=== PATIENT | female | born 1990 | race Caucasian/White ===

== ENCOUNTER 2021-07-13 05:48 | Inpatient (IN) ==
[2021-07-13] MEDS ORDERED: Buffered Lidocaine 1% SYRIN 1 ml INTRADERM ONE (06:00)
[2021-07-13] MEDS ORDERED: Lactated Ringers 1000 ml BAG 1,000 ML IV SCH (06:00)
[2021-07-13] MEDS ORDERED: ceFAZolin 2 GM in NS PREMIX 2 GM/100 ML BAG IVPB ONE (06:02)
[2021-07-13] MEDS ORDERED: Heparin 5000 UNITS/ML 1 mL VIAL ONE (06:02)
[2021-07-13] MEDS ORDERED: ceFAZolin 1 GM ADVAN 1 GM ADDV.VIAL IVPB ONE (06:02)
[2021-07-13] MEDS ORDERED: Midazolam 2 mg/2 ml VIAL 1 mg/ml 2 ml VIAL (2 mg) ONE (07:01)
[2021-07-13] MEDS ORDERED: fentaNYL 100 mcg/2 ml 50 MCG/ML VIAL ONE (07:01)
[2021-07-13] MEDS ORDERED: Propofol 10 MG/ML 20 ML BTL ONE (07:02)
[2021-07-13] MEDS ORDERED: Lidocaine 2% PF 5 ML VIAL ONE (07:02)
[2021-07-13] MEDS ORDERED: Ketamine HCL 50 mg/ml 10 ml VIAL (500 MG) ONE (07:02)
[2021-07-13] MEDS ORDERED: Rocuronium 50 mg VIAL 10 mg/ml 5 ml VIAL (50 mg) ONE (07:11)
[2021-07-13] MEDS ORDERED: Bupivacaine 0.25% SDV 30 ML ONE (07:18)
[2021-07-13] MEDS ORDERED: Methylene Blue 0.5 % 50 MG/10 ML AMP IV ONE (07:18)
[2021-07-13] MEDS ORDERED: Ondansetron 4 mg VIAL 2 MG/ML 2 ml VIAL IV PRN (08:45)
[2021-07-13] MEDS ORDERED: Naloxone 0.4 mg VIAL 0.4 mg/ml 1 ml VIAL IV PRN (08:45)
[2021-07-13] MEDS ORDERED: DiMENhydriNATE IV 50 mg/ml 1 ml VIAL IV PUSH PRN (08:45)
[2021-07-13] MEDS ORDERED: Acetaminophen IV 1 GM/100ML 100 ML IV ONE (09:42)
[2021-07-13] MEDS ORDERED: Dexamethasone IV 4 MG/ML VIAL 1 ml VIAL ONE (09:42)
[2021-07-13] MEDS ORDERED: Ondansetron 4 mg VIAL 2 MG/ML 2 ml VIAL ONE (09:42)
[2021-07-13] MEDS ORDERED: diPHENhydraMINE IV 50 MG/ML 1 ml VIAL (BENADRYL) SLOW PUSH PRN (10:36)
[2021-07-13] MEDS ORDERED: HYDROmorphone 1 MG/1 ML SYRINGE IV SLOW PU PRN (10:36)
[2021-07-13] MEDS ORDERED: HYDROmorphone 0.5 MG/0.5 ML SYRINGE IV SLOW PU PRN (10:36)
[2021-07-13] MEDS ORDERED: HYDROmorphone 1 MG/1 ML SYRINGE ONE (10:42)
[2021-07-13] MEDS: HYDROmorphone 1 MG/1 ML SYRINGE IV PRN ×2 (10:43→11:00)
[2021-07-13] MEDS: Lactated Ringers 1000 ml BAG 1,000 ML IV SCH ×2 (12:50→19:03)
[2021-07-13] MEDS: Heparin 5000 UNITS/ML 1 mL VIAL SUBCUT SCH ×2 (14:28→21:31)
[2021-07-13] MEDS ORDERED: NS 0.9% 1000 ml BAG 1,000 ML IV ONE (20:34)
[2021-07-13] MEDS: Famotidine IV 10 MG/ML 2 ml VIAL (20 mg) IV SLOW PU SCH (21:31)
[2021-07-14] MEDS: Lactated Ringers 1000 ml BAG 1,000 ML IV SCH ×2 (00:28→06:13)
[2021-07-14] MEDS: Heparin 5000 UNITS/ML 1 mL VIAL SUBCUT SCH ×2 (06:13→13:08)
[2021-07-14 07:54] LABS: ABS Lymphocytes 2.1 10^3/ul (1.0-4.8); ABS Monocytes 0.5 10^3/ul (0-0.8); ABS Neutrophils 6.5 10^3/ul (1.5-7.7); Hematocrit 36 % (35-47); Hemoglobin 12.4 g/dL (12.0-16.0); Lymphocyte % 22.6 %; Mean Corpuscular HGB Conc 34 g/dL (31-36); Mean Corpuscular Hemoglobin 31 pg (27-31); Mean Corpuscular Volume 90 fL (80-97); Mean Platelet Volume 8.9 fL (7.4-10.4); Platelet Count 211 10^3/uL (150-450); Red Blood Count 3.98 10^6 /uL (3.70-4.87); Red Cell Distribution Width 14 % (10-15); White Blood Count 9.1 10^3/uL (3.5-10.8)
[2021-07-14 08:12] LABS: Calcium 8.4 mg/dL (8.6-10.3); Potassium 3.9 mmol/L (3.5-5.0)
[2021-07-14] MEDS: Famotidine IV 10 MG/ML 2 ml VIAL (20 mg) IV SLOW PU SCH (09:16)
[2021-07-14] MEDS ORDERED: HYDROcodone/ACET. 7.5/325 LIQ 15 ML UDC PO PRN (10:21)
[2021-07-14] MEDS ORDERED: D5W 1/2 NS KCl 20 meq 1000 ml 1,000 ML IV SCH (11:00)
[2021-07-14 15:07] VITALS: BP 126/78
== END 2021-07-14 15:50 | disposition home or self-care (01) | DRG 621 ==
LOC: AA 05:48 → SSU 12:38
PROVIDERS: ADMIT Surgery; ATTEND Surgery